=== PATIENT | female | born 1965 ===

== ENCOUNTER 2017-02-10 13:42 | Emergency (ER) | payer MEDICAID, OTHER ==
[2017-02-10 13:42] VITALS: BMI 32.3
--- NOTE | 2017-02-10 16:01 | RAD ---
PROCEDURE: Right Knee Radiographs. HISTORY: Pain status post fall 2 days ago COMPARISON: None available. FINDINGS: BONES: Acute displaced fracture deformity of the proximal fibula likely with intra-articular extension. JOINTS: No dislocation. JOINT EFFUSION: No significant joint effusion. OTHER FINDINGS: None. IMPRESSION: Acute displaced fracture deformity of the proximal fibula likely with intra-articular extension.
--- NOTE | 2017-02-10 16:05 | RAD ---
PROCEDURE: Lumbar spine dated 02/10/2017 HISTORY: Low back pain. Status post fall. COMPARISON: No prior study available for comparison. FINDINGS: BONES: No acute compression fractures no retropulsed fragments. The osseous structures appear intact. There is a very mild on which could be secondary to patient positioning or muscle spasm however true scoliotic deformity not completely excluded. Vertebral bodies otherwise exhibit normal alignment. Facets normally aligned. DISC SPACES: There appears to be mild disc space narrowing at the L5-S1 level. Remaining disc space heights are maintained. Facet joints slightly hypertrophic L5-S1 through the L3-L4 levels in somewhat decreasing order of severity. OTHER FINDINGS: None. IMPRESSION: No acute compression fractures. Minor degenerative spondylosis as described.
--- NOTE | 2017-02-10 16:08 | RAD ---
PROCEDURE: Pelvis right hip dated 02/10/2017 HISTORY: Status post fall with right hip pain COMPARISON: Correlation made with CT scan abdomen pelvis dated 03/09/2016 which imaged the pelvis and both hips in 3 planes. . TECHNIQUE: AP view of the pelvis and both hips as well as frogleg lateral view right hip performed. FINDINGS: Current study reveals no evidence of acute displaced fracture nor dislocation. Both femoral heads are appropriately located within the respective acetabula. Joint spaces appear relatively preserved. A tiny sclerotic foci both femoral heads seen on prior CT scan felt to represent osteomas or bone islands are less well seen on this exam due to differences in resolution between exams. IMPRESSION: No acute displaced fracture nor dislocation. Additional imaging could be performed if symptoms persist or occult fracture suspected clinically.
--- NOTE | 2017-02-10 16:17 | C.PDOC ---
Time Seen by Provider: 02/10/17 14:02 Chief Complaint (Nursing): Lower Extremity Problem/Injury Past Medical History Vital Signs: Last Vital Signs Temp 98.1 F 02/10/17 14:01 Pulse 93 H 02/10/17 14:01 Resp 20 02/10/17 14:01 BP 111/73 02/10/17 14:01 Pulse Ox 96 02/10/17 14:01 Family History: States: Unknown Family Hx - Social History Hx Tobacco Use: No Hx Alcohol Use: No Hx Substance Use: No - Immunization History Hx Tetanus Toxoid Vaccination: No Hx Influenza Vaccination: No Hx Pneumococcal Vaccination: No ED Course And Treatment O2 Sat by Pulse Oximetry: 96 Disposition - Disposition
[2017-02-10 16:44] VITALS: BP 114/77; PULSE 79; RESP 18; TEMP 97.8; O2SAT 98
--- NOTE | 2017-02-10 17:37 | C.PDOC ---
History Of Present Illness Pt was standing on a chair when the chair folded and pt fell. Pt c/o greatest pain in right lateral knee area. Pt also c/o right leg/foot numbness. - HPI Time Seen by Provider: 02/10/17 14:02 Chief Complaint (Nursing): Lower Extremity Problem/Injury History Per: Patient Injury Occurred (Timing): Days Ago: (2) Location Of Injury: Right: Back (lower), Hip, Knee Severity: Moderate Additional History Per: Prior Records - Fall Fall:Prior To Injury: Lost Balance Past Medical History Reviewed: Historical Data, Nursing Documentation, Vital Signs Vital Signs: Last Vital Signs Temp 97.8 F 02/10/17 16:43 Pulse 79 02/10/17 16:43 Resp 18 02/10/17 16:43 BP 114/77 02/10/17 16:43 Pulse Ox 98 02/10/17 17:37 - Medical History PMH: No Chronic Diseases Family History: States: Unknown Family Hx - Social History Hx Tobacco Use: No Hx Alcohol Use: No Hx Substance Use: No - Immunization History Hx Tetanus Toxoid Vaccination: No Hx Influenza Vaccination: No Hx Pneumococcal Vaccination: No Review Of Systems Except As Marked, All Systems Reviewed And Found Negative. Constitutional: Negative for: Fever Cardiovascular: Negative for: Chest Pain Respiratory: Negative for: Shortness of Breath Gastrointestinal: Negative for: Vomiting, Abdominal Pain Musculoskeletal: Positive for: Back Pain (low), Leg Pain (right). Negative for : Neck Pain Skin: Negative for: Rash Neurological: Positive for: Weakness (right foot), Numbness (RLE) Physical Exam - Physical Exam Appears: Non-toxic, No Acute Distress Skin: Normal Color, Warm, Dry Head: Atraumatic, Normacephalic Eye(s): bilateral: Normal Inspection, PERRL, EOMI Neck: Normal ROM, No Midline Cervical Tenderness, No Step Off Deformity, Supple Chest: Symmetrical, No Deformity Cardiovascular: Rhythm Regular Respiratory: Normal Breath Sounds, No Accessory Muscle Use Gastrointestinal/Abdominal: Soft, No Tenderness Back: No CVA Tenderness, Paraspinal Tenderness (right lower) Extremity: Tenderness (greates in right lateral knee) Pulses: Right Dorsalis Pedis: Normal Neurological/Psych: Oriented x3, Normal Speech, Normal Cognition, No Normal Motor (mild right foot drop), No Normal Sensation (decreased sensation of right leg/foot compared to left) ED Course And Treatment O2 Sat by Pulse Oximetry: 98 Pulse Ox Interpretation: Normal - Other Rad LS spine x-rays X-Ray: Viewed By Me, Read By Radiologist Interpretation: IMPRESSION: No acute compression fractures. Minor degenerative spondylosis as described. Right hip x-rays X-Ray: Viewed By Me, Read By Radiologist Interpretation: IMPRESSION: No acute displaced fracture nor dislocation. Additional imaging could be performed if symptoms persist or occult fracture suspected clinically. Right knee x-rays X-Ray: Viewed By Me, Read By Radiologist Interpretation: IMPRESSION: Acute displaced fracture deformity of the proximal fibula likely with intra-articular extension. Reassessment Condition: Improved Disposition Discussed With Dr.: Luz Sandoval Comment: I discussed with him the pt's presentation, x-ray and physical exam findings and concern for peroneal nerve injury. He states that there is no need for immobilization or non-weight bearing. He wants pt to be discharged and f/up with him in the clinic. Doctor Will See Patient In The: Office Counseled Patient/Family Regarding: Studies Performed, Diagnosis, Need For Followup, Rx Given - Disposition Referrals: Luz Sandoval MD [Staff Provider] - [facility] [Outside] Disposition: HOME/ ROUTINE Disposition Time: 17:43 Condition: STABLE Additional Instructions: Use crutches to aid you in walking due to right foot drop. Follow up with the orthopedic surgeon in the clinic within 1 week for further evaluation and treatment. Return to the ER if you develop worsening of symptoms or if you have any other concerns. Prescriptions: Naproxen [Naprosyn] 1 tab PO BID PRN #20 tab PRN Reason: Pain Instructions: Leg Fracture (ED), Foot Drop (ED) Forms: Blockchain (Belarusian) Print Language: KHMER - Clinical Impression Clinical Impression: Fracture of proximal end of right fibula, Right peroneal nerve injury
== END 2017-02-10 18:14 | disposition home or self-care (01) ==
LOC: C.ER 13:42
DX: S82.491A Other fracture of shaft of right fibula, initial encounter for closed fracture (principal); S84.11XA Injury of peroneal nerve at lower leg level, right leg, initial encounter; W17.89XA Other fall from one level to another, initial encounter
CPT/HCPCS: 72100; 73502; 73562; 96372; 99285; J1885